=== PATIENT | female | born 1960 | race Caucasian/White ===

== ENCOUNTER → 2016-08-29 | Outpatient (CLI) | payer MEDICARE, MEDICAID ==
[~2016-08-29] MED LIST: BACL20TA PO; CLON0.5T4 PO; DOXE10CA2 PO; ESCI20TA30 PO; FAMO40TA PO; FLEC50TA2 PO; LEVO75TA9 PO; MELO15TA12 PO; MULT-669 PO; OXYC1TAB8 PO; RISP1TAB27 PO; SIMV20TA6 PO; SUCR1TAB PO
== END ==
LOC: WC.BC 13:29
DX: Z12.31 Encounter for screening mammogram for malignant neoplasm of breast (principal); Z95.0 Presence of cardiac pacemaker
CPT/HCPCS: 77063; G0202

== ENCOUNTER → 2016-09-02 | Outpatient (CLI) | payer MEDICARE, MEDICAID ==
--- NOTE | 2016-09-02 16:33 | DI ---
Indication: ITS.REASON: M54.5 LOW BACK PAIN radiating down both legs PROCEDURE: LUMBAR SPINE COMP W/O BEND: Lumbar spine complete with obliques: Five views Encounter: Initial Comparison: 01/24/2015 Findings: The vertebral body heights and the alignments appear well preserved. There is no subluxation. There is mild degenerative disc disease of the mid to lower lumbar spine. The oblique views do not demonstrate a definite pars defect. There is perhaps mild posterior facet arthropathy of the lower lumbar spine. Impression: Mild degenerative disc disease and mild posterior facet arthropathy without significant change from prior study. .
== END ==
LOC: IMA 11:43
PROVIDERS: ATTEND Family Medicine
DX: M51.36 Other intervertebral disc degeneration, lumbar region (principal); M46.86 Other specified inflammatory spondylopathies, lumbar region